=== PATIENT | male | born 1995 | race Caucasian/White ===

== ENCOUNTER → 2024-02-11 08:59 | Day surgery (SDC) | payer OTHER, SELFPAY ==
[2024-02-11] VITALS (13 sets, daily range): BP systolic 144–171; BP diastolic 91–117; BMI 26.7
[2024-02-11] MEDS: GlucaGen 1 MG IV ×2 (02:04→03:03)
[2024-02-11] MEDS: NSS 1000 IV (02:04)
[2024-02-11] MEDS: PROTONIX IV 40 MG IV (02:11)
[2024-02-11 02:16] LABS: % Basophils 0.4 % (0-2); % Eosinophils 7.6 % (0-6); % Immature Granulocytes 0.3 % (0-0.5); % Lymphocytes 19.9 % (20.5-51.1); % Monocytes 8.3 % (1.7-9.3); % Neutrophils 63.5 % (42.2-75.2); Absolute Basophils 0.1 10^3/uL (0-0.2); Absolute Eosinophils 0.9 10^3/uL (0-0.7); Absolute Lymphocytes 2.3 10^3/uL (1.2-3.4); Absolute Neutrophils 7.5 10^3/uL (1.4-6.5); Hematocrit 41.2 % (39.0-52.0); Hemoglobin 15.3 g/dL (13.0-18.0); Mean Corp Hgb Conc. 37.1 g/dL (33.0-37.0); Mean Corpuscular Volume 86.2 fL (80.0-94.0); Mean Platelet Volume 9.1 fL (7.4-10.4); Nucleated Red Blood Cells % 0 % (-); Platelet Count 266 10^3/uL (130-400); Red Blood Cell Count 4.78 10^6/uL (4.70-6.10); Red Cell Dist. Width 11.3 % (11.5-14.5); White Blood Cell Count 11.8 10^3/uL (4.8-10.8)
--- NOTE | 2024-02-11 02:29 | ED.GENMED ---
History of Present Illness
General
Chief Complaint: Throat Problem
Source: patient
Exam Limitations: none
Time Seen by Provider: 02/11/24 01:46
Nursing documentation reviewed up to this point in time: agreed with
History of Present Illness
History of Present Illness:
This is a 28-year-old male who presents with concerns for a piece of chicken stuck in his throat. He states around 7 PM while eating chicken he swallowed and then had a sensation that the chicken got stuck in his lower throat area. He denies
coughing nor choking on this piece of chicken, swallowed it without difficulty but then has had a sense that it did not completely go down and since 7 PM he has not been able to swallow water with immediate regurgitation. He has had no success with
attempted vomiting. He does admit to occasional similar episodes but generally can vomit the piece of meat back up or it just eventually resolves. He denies hematemesis.
He has never required ED evaluation and has never sought GI evaluation. He states there is family history of similar esophageal strictures including his brother and father.
His only daily medications are Adderall and bupropion. He takes no anticoagulants.
He does admit to mild discomfort superior substernal to midsternal region. No cough no shortness of breath. No abdominal pain.
Past History
Past History
ED Past Medical History: Psychiatric
ED Past Surgical History: None
Social History
Tobacco: Non-smoker
Alcohol: Occasional
Drug: None
Living: with family
Employment: Employed
Family History
Family History: Other (Esophageal food obstruction)
Phy Exam
Physical Exam
Physical Exam:
GENERAL: 28-year-old male appears his stated age, awake and alert, pleasant, appears in no acute distress. Easily communicative. Handling secretions well. No respiratory distress.
EYE: anicteric
NECK: Supple, nontender, no meningismus, no significant adenopathy.
ENT: posterior pharynx is clear, oral mucosa is moist. No rhinorrhea.
CARDIAC: Regular rate and rhythm. no murmur.
LUNGS: Clear breath sounds bilaterally, no acute respiratory distress, no wheezes/rales/rhonchi
ABDOMEN: Soft, nondistended, without focal tenderness, normoactive BS.
NEUROLOGICAL: Alert and oriented x3, no focal neuro deficits. Gait is hallman and steady.
SKIN: Warm and dry, normal color, skin intact. No rash.
MUSCULOSKELETAL: No C/C/E. peripheral pulses are full and equal b/l. No palpable tenderness.
PSYCH: Normal and appropriate interaction.
Course
Orders/Labs/Results
Orders:
Orders
02/11/24 01:56
0.9% Sodium Chloride 1000 ml [Nss] 1,000 ml IV BOLUS
Glucagon [GlucaGen] 1 mg .ROUTE .STK-MED ONE
Glucagon [GlucaGen] 1 mg IV NOW STA
Pantoprazole [Protonix IV] 40 mg IV NOW STA
02/11/24 02:08
Basic Metabolic Panel Urgent
Complete Blood Count/With Diff Urgent
02/11/24 02:28
CR Chest - 2 Views Urgent
Comment:
Reason For Exam: concern for esophageal food obstruction; CP
02/11/24 02:45
Glucagon [GlucaGen] 1 mg IV NOW STA
Abnormal Lab Results
02/11/24
02:08
WBC 11.8 H 10^3/uL
(4.8-10.8)
MCH 32.0 H pg
(27.0-31.0)
MCHC 37.1 H g/dL
(33.0-37.0)
RDW 11.3 L %
(11.5-14.5)
Absolute Neuts (auto) 7.5 H 10^3/uL
(1.4-6.5)
Absolute Monos (auto) 1.0 H 10^3/uL
(0.1-0.6)
Absolute Eos (auto) 0.9 H 10^3/uL
(0-0.7)
Lymphocytes % 19.9 L %
(20.5-51.1)
Eosinophils % 7.6 H %
(0-6)
Glucose 102 H mg/dl
(70-99)
02/11/24 02:08
02/11/24 02:08
Vital Signs
Initial and Last Documented VS:
Initial Vital Signs
Temp Pulse Resp BP Pulse Ox
97.8 F 98 20 158/108 100
02/11/24 01:26 02/11/24 01:26 02/11/24 01:26 02/11/24 01:26 02/11/24 01:26
Last Documented Vital Signs
Temp Pulse Resp BP Pulse Ox
97.8 F 98 20 160/104 98
02/11/24 01:26 02/11/24 01:26 02/11/24 01:02/11/24 05:00 02/11/24 05:00
MDM/Problems Addressed
Differential Diagnosis Includes:
Concern for esophageal food impaction. Other consideration is severe GERD. Boerhaave syndrome is much less likely as patient overall is quite comfortable.
Will initiate IV fluids, give IV Protonix and IV glucagon. Will check labs and chest x-ray.
*Radiology
Radiology exam reviewed: preliminary read by ED provider (Chest x-ray is unremarkable.)
*Pulse Oximetry
Patient hypoxic: no
*Critical Care Note
Total Time (30-74mins, 75-104mins- exclusive of procedures): Not Applicable
Update Note
Update Note:
02/11/2024 0338 AM
Patient feeling improved after second dose of glucagon. Sleeping upon reevaluation. No episodes of regurgitation noted.
Chest x-ray is reassuring.
Will trial a sip of water.
02/11/2024 04:30 AM
Patient unable to tolerate water, immediately regurgitates.
Case discussed with GI, Dr. Ortega who will be in to evaluate and plan for endoscopy this morning.
Will continue n.p.o. status, IV fluids.
ED Attending Note
-
Portions of this chart may have been created with voice recognition software.� Occasional wrong word or��sound alike� substitutions may have occurred due to the inherent limitations of voice recognition software.
Discharge Plan
Departure
Patient Disposition: GI LAB
Date of Disposition: 02/11/24
Time of Disposition: 04:35
Admit to: GI lab
Admit to doctor: Jordan
Presentation/result/management discussed w/ accepting MD/DO: GI
Condition: Fair
Discharge Problem:
Esophageal obstruction due to food impaction
Prescriptions:
No Action
dextroamphetamine-amphetamine [Adderall] 20 MG tablet
20 mg PO DAILY
ondansetron HCl 4 MG tablet
4 mg PO Q8HPRN PRN (Reason: nausea) Qty: 6 0RF
ibuprofen 800 MG tablet
800 mg PO TID Qty: 20 0RF
Referrals:
Sheree Carson MD [Family Provider] -
Interventions
Interventions:
*Risk Screen - Suicide Last Done: 02/11/24 01:26
*General Assessment Last Done: 02/11/24 02:15
*Neglect/Abuse Screening Last Done: 02/11/24 01:26
ED-EENT Assessment Last Done: 02/11/24 02:15
ED- Pulmonary Assessment Last Done: 02/11/24 02:15
Discharge Date and Time
Print Language: YI
[2024-02-11 02:36] LABS: Blood Urea Nitrogen 14 mg/dl (9-20); Calcium 10.2 mg/dl (8.4-10.2); Carbon Dioxide 22 mmol/L (22-30); Chloride 105 mmol/L (98-107); Estimated Creatinine Clearance 102 ml/min; Glucose 102 mg/dl (70-99); Potassium 4.7 mmol/L (3.5-5.1); Sodium 143 mmol/L (135-145); eGFR > 60.00
--- NOTE | 2024-02-11 06:47 | CON.GI ---
Consultation
-
Date/Time Consultation Requested: 02/11/24 at 4:30 am
Date/Time Consultation Performed: 02/11/24 at 5:15 am
Requesting Provider: Domenico
Performing Provider: Jordan
Reason for Consultation: food impaction
Medical History
Chief Complaint / HPI
Chief Complaint: food impaction
History of Present Illness:
Pt is a 28 y/o man with a hx of intermittent dysphagia to solids. has had to vomit out food that has been stuck on 2 occasions but didn't work last night. He did have mac and cheese and chicken. he had 2 doses of glucagon in the ER w/o relief. He
feels a piece of chicken stuck but no pain and no vomiting. Can tolerate secretions. he has a hx of tree nut allergy. his brother has EoE. he has never had an endoscopy
Past Medical History
Past Medical History: Psychiatric
Past Surgical History: None
Social History
Tobacco: Non-Smoker
Family History
Family History: Other (EoE in brother)
Allergies / Home Medications
Allergy/AdvReac Type Severity Reaction Status Date / Time
No Known Allergies Allergy Verified 02/11/24 01:29
�Medication �Instructions �Recorded
dextroamphetamine-amphetamine 20 20 mg PO DAILY 08/06/10
mg tablet (Adderall)
ondansetron HCl 4 mg tablet 4 mg PO Q8HPRN PRN nausea #6 tabs 08/06/10
ibuprofen 800 mg tablet 800 mg PO TID ##20 08/29/10
Review of Systems
-
All other systems: A 12 pt ROS was Negative except as stated above in HPI
Vital Signs
Temp Pulse Resp BP Pulse Ox
97.8 F 98 16 153/94 98
02/11/24 01:26 02/11/24 01:26 02/11/24 06:33 02/11/24 06:00 02/11/24 06:15
Physical Exam
Exam
General: No Apparent Distress
HEENT: Anicteric
Cardiac: S1/S2
GI: Soft and Non Tender
Skin: Warm
Neuro: Awake
Psych: Calm
Results
WBC 11.8 10^3/uL (4.8-10.8) H 02/11/24 02:08
Hgb 15.3 g/dL (13.0-18.0) 02/11/24 02:08
Hct 41.2 % (39.0-52.0) 02/11/24 02:08
MCV 86.2 fL (80.0-94.0) 02/11/24 02:08
Plt Count 266 10^3/uL (130-400) 02/11/24 02:08
Absolute Neuts (auto) 7.5 10^3/uL (1.4-6.5) H 02/11/24 02:08
Sodium 143 mmol/L (135-145) 02/11/24 02:08
Potassium 4.7 mmol/L (3.5-5.1) 02/11/24 02:08
Chloride 105 mmol/L (98-107) 02/11/24 02:08
Carbon Dioxide 22 mmol/L (22-30) 02/11/24 02:08
BUN 14 mg/dl (9-20) 02/11/24 02:08
Creatinine 1.0 mg/dL (0.7-1.3) 02/11/24 02:08
Calcium 10.2 mg/dl (8.4-10.2) 02/11/24 02:08
Assessment / Plan
-
Pt is a 28 y/o with a food impaction. Comfortable but needs EGD for food removal:
1. urgent EGD
2. will need mid esophageal bx if possible
3. will need outpatient f/u
d/w Dr. Acuña
-
-
Thank you for consultation and allowing me to participate in the patient's care. Please call the guest relations representative GI physician during the after hours with any questions or concerns.
[2024-02-11] MEDS: DILAUDID 0.25 MG IV (07:44)
== END ==
LOC: EMR 01:23 → GI 08:59
PROVIDERS: ATTENDING PHYSICIAN Emergency Medicine; FAMILY PHYSICIAN Family Medicine
DX: R13.10 Dysphagia, unspecified (principal); T18.128A Food in esophagus causing other injury, initial encounter; W44.F3XA Food entering into or through a natural orifice, initial encounter; K22.89 Other specified disease of esophagus
CPT/HCPCS: 43247; 43239; 88305; 71046; 80048; 85025; 99285; J1610

== ENCOUNTER → 2024-05-23 06:24 | Day surgery (SDC) | payer OTHER, SELFPAY | LOC: GI 06:24 | PROVIDERS: ATTENDING PHYSICIAN Internal Medicine | DX: K20.0 Eosinophilic esophagitis (principal); K22.89 Other specified disease of esophagus | CPT/HCPCS: 43239; 88305; 88342 ==